=== PATIENT | female | born 1965 | race Caucasian/White ===

== ENCOUNTER 2020-11-20 10:09 | Emergency (ER) | payer OTHER, SELFPAY ==
--- NOTE | ~2020-11-20 | XR_ITS ---
EXAMINATION: XR wrist RT min 3V DATE: 11/20/2020 10:30 INDICATION: Left wrist pain post fall TECHNIQUE: Posteroanterior, ulnar deviation, oblique, and lateral views of the left wrist were obtain ed. COMPARISON: none FINDINGS: Alignment is normal. No acute fracture. Small corticated ossicle without evident donor site at the do rsal aspect of the carpus. Small lucencies with thin sclerotic margins consistent with degenerative s ubchondral cysts or chronic erosions along both sides of the lunotriquetral ligament. Mild osteoarthr itis at the first carpometacarpal joint. Mild soft tissue swelling along the dorsal and ulnar aspect of the wrist and distal forearm. IMPRESSION: 1. No acute osseous abnormality. Reviewed, dictated and finalized at location A.
[2020-11-20 10:19] VITALS: BP 153/74; PULSE 86; RESP 16; TEMP 36.9; O2SAT 99
--- NOTE | 2020-11-20 10:53 | ED.UPPEXIN ---
HPI - Extremity Injury (Upper) General Chief Complaint: Extremity Injury, Upper Stated Complaint: R WRIST INJURY/HEAD INJURY Time Seen by Provider: 11/20/20 10:35 Source: patient and RN notes reviewed Mode of arrival: ambulatory Limitations: no limitations History of Present Illness HPI narrative: Patient presents today complaining of a fall last night as she was going into work at 1900. She states she slipped on a curb. Complains of right wrist pain and swelling. She is currently pain-free at rest, but this increases to 6/10 with movement. She has been applying ice and taking ibuprofen with some relief. complaint: injury to: right and wrist Related Data Home Medications Medication Instructions Recorded Confirmed lamotrigine 250 mg PO DAILY 11/20/20 11/20/20 Allergies Allergy/AdvReac Type Severity Reaction Status Date / Time No Known Allergies Allergy Verified 11/20/20 10:47 Review of Systems Review of Systems: Narrative: CONSTITUTIONAL: Denies body aches, fever, chills, or sweats. EYES: Denies visual changes, redness, or discharge. ENT: Denies rhinorrhea, congestion, sore throat, or otalgia. CARDIOVASCULAR: Denies chest pain, palpitations, or edema. RESPIRATORY: Denies cough or dyspnea. GASTROINTESTINAL: Denies abdominal pain, nausea, vomiting, or diarrhea. GENITOURINARY: Denies dysuria or hematuria. SKIN: Denies rash, itching, or wounds. MUSCULOSKELETAL: Denies back pain, or myalgia. + Right wrist injury NEUROLOGIC: Denies headache, numbness, tingling, or weakness. PSYCH: Denies depression or anxiety. [facility] Past Medical History Medical History (Updated 11/20/20 @ 11:21 by Yani Gonzalez, [facility], ) High cholesterol Seizures Comments At time of signature, I have reviewed and agree with nursing past medical, surgical, social and family history unless otherwise noted. Please see nursing chart for further information. There is no relevant family history pertinent to the presenting complaint Exam Narrative: Exam Narrative: GENERAL: Well-appearing, well-nourished, and in no acute distress. HEAD: Normocephalic, atraumatic. EYES: EOMI. No redness or drainage. Conjunctivae normal. ENT: Mucous membranes pink and moist. NECK: Normal AROM. CHEST: No respiratory distress. EXTREMITIES: Right wrist: No bony tenderness to the distal ulna or radius. Patient has mild to moderate soft tissue swelling about the wrist. Bruising to the dorsum of the wrist extending to the dorsum of the hand. No bony tenderness to the hand. No snuffbox tenderness. Pain with AROM. AROM is somewhat limited due to swelling. Distal sensation intact. Capillary refill normal. Radial pulse normal. SKIN: Warm, dry, no rash. Capillary refill normal. Normal skin turgor. NEURO: No focal deficits. Alert and oriented x3. Gait steady. PSYCH: Normal affect. No signs of depression or anxiety. Course Vital Signs Vital signs: Vital Signs Temperature 98.5 F 11/20/20 10:19 Pulse Rate 86 11/20/20 10:19 Respiratory Rate 16 11/20/20 10:19 Blood Pressure 153/74 H 11/20/20 10:19 Pulse Oximetry 99 11/20/20 10:19 Temperature 98.5 F 11/20/20 10:19 Pulse Rate 86 11/20/20 10:19 Respiratory Rate 16 11/20/20 10:19 Blood Pressure 153/74 H 11/20/20 10:19 Pulse Oximetry 99 11/20/20 10:19 Reviewed. Pt has been instructed to follow up with her PCP regarding her elevated blood pressure today. MDM - Extremity Injury (Upper) Differential Diagnosis Differential diagnosis: Likely sprain and strain of wrist, fracture of wrist, fracture of hand and other (Hematoma) Imaging Data Radiologist's impression: ITS Impressions Wrist X-Ray 11/20/20 10:34 IMPRESSION: 1. No acute osseous abnormality. Critical Care Time Critical Care Time Critical Care Time: No Discharge Plan Discharge Clinical Impression: Right wrist sprain Qualifiers: Encounter type: initial encounter Qualified Code(s): S63.501A
== END 2020-11-20 11:00 | disposition home or self-care (01) ==
PROVIDERS: Emergency Provider Nurse Practitioner
DX: S63.501A Unspecified sprain of right wrist, initial encounter (principal); W19.XXXA Unspecified fall, initial encounter; E78.00 Pure hypercholesterolemia, unspecified; G40.909 Epilepsy, unspecified, not intractable, without status epilepticus
CPT/HCPCS: 73110; 99213; G0463

== ENCOUNTER 2022-12-11 11:11 | Emergency (ER) | payer OTHER, SELFPAY ==
--- NOTE | ~2022-12-11 | XR_ITS ---
XR foot LT min 3V DATE: 12/11/2022 11:37 INDICATION: Proximal left foot pain, bruising, swelling after a fall last night TECHNIQUE: 4 views COMPARISON: None FINDINGS: There is a minimally displaced linear intra-articular fracture of the lateral base of the f ifth metatarsal bone. No other fracture or dislocation. IMPRESSION: Linear minimally displaced intra-articular fracture of the base of the fifth metatarsal b one Reviewed, dictated and finalized at location A. IMPRESSION: Linear minimally displaced intra-articular fracture of the base of the fifth metatarsal bone
[2022-12-11 11:20] VITALS: BP 143/70; PULSE 93; RESP 18; TEMP 36.4; O2SAT 98
--- NOTE | 2022-12-11 11:22 | ED.LOWEXIN ---
HPI - Extremity Injury (Lower) General Chief Complaint: Extremity Injury, Lower Stated Complaint: lt foot injury Time Seen by Provider: 12/11/22 11:13 Source: patient Mode of arrival: ambulatory Limitations: no limitations History of Present Illness HPI Narrative: Patient is a 57-year-old female that presents with left foot pain for over week. Patient states she fell on stairs 12/02 and has had pain to lateral foot since. Patient reports initial bruising and swelling. Bruising has since almost fully resolved the swelling is still present. Patient has been walking on foot with pain since. Patient has been elevating icing and using Toradol for pain. Denies any numbness or tingling to foot. States she still below move toes normally without pain Related Data Home Medications Medication Instructions Recorded Confirmed lamotrigine 250 mg tablet,extended 250 mg PO DAILY 12/11/22 12/11/22 release 24 hr rosuvastatin 40 mg tablet 40 mg PO DAILY 12/11/22 12/11/22 venlafaxine 75 mg tablet 75 mg PO DAILY 12/11/22 12/11/22 Allergies Allergy/AdvReac Type Severity Reaction Status Date / Time No Known Allergies Allergy Verified 12/11/22 11:31 Review of Systems Review of Systems: All systems reviewed & are unremarkable except as noted in HPI and below Constitutional: Constitutional: Denies body ache(s), Denies chills, Denies fatigue, Denies fever(s), Denies headache(s), Denies malaise and Denies weakness Eyes: Eyes: Denies blurry vision, Denies irritation and Denies loss of vision ENT: Denies otalgia, Denies headache(s), Denies nasal discharge, Denies sinus pain and Denies sore throat Cardiovascular: Cardiovascular: Denies chest pain, Denies irregular heart rhythm and Denies dyspnea Respiratory: Respiratory: Denies dyspnea Gastrointestinal: Gastrointestinal: Denies abdominal pain, Denies melena, Denies hematochezia, Denies diarrhea, Denies nausea and Denies vomiting Musculoskeletal: Musculoskeletal: Denies back pain, Denies myalgias, Denies arthralgias and Reports other (Left foot pain) Integumentary/Breasts: Skin/Breast: Denies pruritus and Denies rash Neurologic: Denies headache(s), Denies loss of vision and Denies weakness Psychiatric: Psychiatric: Reports no additional psychiatric complaints Endocrine: Endocrine: Denies fatigue PMFSH Past Medical History Medical History (Updated 12/11/22 @ 12:11 by Angela Smith APRN) High cholesterol Seizures Comments At time of signature, agree with nursing past medical, surgical, social and family history. There is no relevant family history pertinent to the presenting complaint. Exam Const: General: cooperative, healthy appearing, comfortable, no acute distress and well nourished Nutritional Appearance: well nourished Orientation/consciousness: patient oriented x3 Limitations: no limitations HENMT: Head: normal to inspection, normocephalic and atraumatic Ears: hearing grossly normal bilaterally and external ears normal Face/Nose/Sinus: Normal external nose present, normal facial exam and face symmetric Face and sinus: normal facial exam and face symmetric Mouth: Yes lip normal Eyes: General: appearance normal, both eyes and all related structures Alignment and Position: alignment normal and position normal Periorbital: periorbital findings normal Eyelids: eyelids normal Pupils: Equal, round and reactive pupils present EOM: EOMs intact bilaterally Neck: Neck: normal visual inspection, full ROM and supple Chest: Chest palpation & inspection: normal inspection of the chest Resp: Effort & Inspection: normal respiratory effort and able to speak in complete sentences Auscultation: clear to auscultation bilaterally Cardio: Rate: regular rate Rhythm: regular rhythm Heart sounds: S1 normal heart sound present and S2 normal heart sound present GI: Inspection: normal to inspection Skin: General skin exam: normal color and no rashes or lesions noted Neuro: G
== END 2022-12-11 12:24 | disposition home or self-care (01) ==
PROVIDERS: Emergency Provider Nurse Practitioner Family; PCP Family Medicine
DX: S92.352A Displaced fracture of fifth metatarsal bone, left foot, initial encounter for closed fracture (principal); W10.9XXA Fall (on) (from) unspecified stairs and steps, initial encounter; E78.00 Pure hypercholesterolemia, unspecified; G40.909 Epilepsy, unspecified, not intractable, without status epilepticus
CPT/HCPCS: 29505; 73630; 99214; G0463